=== PATIENT | female | born 1965 | race Caucasian/White ===

== ENCOUNTER 2019-10-06 00:44 | Inpatient (IN) | payer BC ==
[2019-10-06] MEDS ORDERED: hydrALAZINE 20 MG/ML VIAL SLOW IVP PRN (02:09)
[2019-10-06] MEDS ORDERED: Ketorolac Tromethamine 30 MG/ML VIAL IVP PRN (02:09)
[2019-10-06] MEDS ORDERED: Morphine 4 MG/ML VIAL SLOW IVP PRN (02:10)
[2019-10-06] MEDS ORDERED: Pantoprazole 40 MG VIAL IVP SCH ×2 (02:15→21:00)
[2019-10-06] MEDS: D5 1/2 NS w/20 mEq KCL 1,000 ML IV SCH ×3 (02:36→20:45)
[2019-10-06] MEDS: Morphine 2 MG/ML SYRINGE SLOW IVP PRN ×2 (02:38→14:47)
[2019-10-06 03:38] VITALS: BMI 21.9
[2019-10-06] MEDS ORDERED: Ondansetron PF 4 MG/2 ML Vial IVP PRN (08:00)
--- NOTE | 2019-10-06 08:21 | HP ---
CHIEF COMPLAINT: Small-bowel obstruction. HISTORY OF PRESENT ILLNESS: This is a 53-year-old female, who is 3-1/2 years status post gastric bypass, who now presents with nausea, vomiting for a few days. She notes more bloating in the last few weeks, became more vomiting yesterday. Seen in the emergency department where CT scan shows evidence of small-bowel obstruction, admitted to the hospital. She feels much better. Her nausea is improved. Her abdomen is much softer and smaller. She says she is passing small amounts of gas. She has not had a bowel movement. She did not drink oral contrast with her CAT scan. She has had an NG overnight which has put out mostly clear output. No bile. MEDICAL HISTORY: Morbid obesity. SURGICAL HISTORY: Above. MEDICATIONS: Taken daily, multivitamin, thyroid, calcium. ALLERGIES: CODEINE. SOCIAL HISTORY: She is smoking again. No alcohol or other drugs. REVIEW OF SYSTEMS: Ten-system review of systems is otherwise negative unless described above. PHYSICAL EXAMINATION: HEENT: Sclerae are anicteric. Oropharynx clear. NECK: No lymphadenopathy. CHEST: Clear. HEART: Regular rate. ABDOMEN: Soft, nontender, nondistended. Well-healed incisions without hernia. No ischemia or edema to extremities. LABORATORY DATA: Done over in [place] revealed a white blood cell count of 11, hemoglobin of 16, platelet count of 253. Sodium 142, potassium 3.8, creatinine is 0.65. Liver function tests are all normal except for AST which is elevated at 36, normal high being 34. CT scan as above. ASSESSMENT: Partial small-bowel obstruction. It does not appear to be an internal hernia. Clinically improved. PLAN: 1. Gastrografin small-bowel follow-through this morning. 2. OR for laparoscopy if worsens again clinically or small-bowel follow-through shows significant obstruction. Job ID: [id number]
[2019-10-06] MEDS ORDERED: MD-Gastroview 120 ML BOT ONE (10:07)
--- NOTE | 2019-10-06 16:48 | RAD ---
Small bowel series: 10/06/2019 HISTORY: 53-year-old female with small bowel obstruction. FINDINGS: Chronometer Tester view demonstrates excreted IV contrast material in a decompressed urinary bladder. This eventua lly becomes more dense later. Injection of Gastrografin into the esophagogastric tube demonstrates contrast in a very dilated proximal jejunum. There is abrupt transition in caliber in the left side o f the abdomen, where subsequently, collapsed small bowel loops are visualized initially on the two-hour image. There is contrast material in the decompressed right hemicolon and in nondilated ilea l loops in the lower abdomen/pelvis, appearing on the 3 hour image. IMPRESSION: 1. Status post bariatric surgery, with jejunal connection to a very small gastric remnant. 2. Partial small bowel obstruction in the proximal jejunum in left side of abdomen..
[2019-10-06] MEDS ORDERED: Chloraseptic Spray 180 ml Bottle PO PRN (23:50)
--- NOTE | 2019-10-07 02:04 | PRG ---
DATE OF SERVICE: 10/06/2019 SUBJECTIVE: The patient was seen this evening during rounds. She was lying in bed, resting comfortably and asleep with no signs of acute distress. Nursing reported no acute events. NG tube in place. OBJECTIVE: VITAL SIGNS: Temperature 98.1, pulse 72, respirations 16, oxygen saturation 96% on room air, and blood pressure 98/63. GENERAL: Well-appearing middle-aged female, lying in bed, asleep, with no signs of acute distress. PULMONARY: Equal chest rise and fall. No signs of acute respiratory distress. ASSESSMENT: 1. Partial small-bowel obstruction, resolving. 2. History of gastric bypass surgery and hypothyroidism. PLAN: Continue n.p.o. Continue IV fluids at 120 an hour. Continue NG tube to low-intermittent wall suction. Start PT tomorrow. Monitor for return of bowel function. Job ID: [id number]
[2019-10-07] MEDS: D5 1/2 NS w/20 mEq KCL 1,000 ML IV SCH (03:48)
[2019-10-07 05:52] LABS: #Eosinphils 0.2 thou/uL (0.0-0.7); #Lymphocytes 1.7 thou/uL (1.20-3.40); #Monocytes 1.3 thou/uL (0.11-0.59); #Neutrophils 6.7 thou/uL (1.40-6.50); %Basophils 0.4 % (0.0-1.0); %Eosinophils 1.7 % (0.0-10.0); %Lymphocytes 17.5 % (21.0-51.0); %Monocytes 12.8 % (0.0-10.0); %Neutrophils 67.6 % (42.0-75.0); Hemoglobin 13.7 g/dL (12.0-16.0); Mean Corpuscular HGB CONC 31.5 g/dL (32.0-36.0); Mean Corpuscular Hemoglobin 32.4 pg (27.0-31.0); Mean Platelet Volume 7.7 fL (7.4-10.4); Platelet Count 212 thou/uL (130-400); RBC Distribution Width 12.5 % (11.5-14.5); Red Blood Cell (RBC) Count 4.23 mill/uL (4.20-5.40)
[2019-10-07 05:58] LABS: Anion Gap 10 mmol/L (10-20); BUN (Urea Nitrogen) 14 mg/dL (9.8-20.1); Calc. Creatinine Clearance 93 mL/min (70-130); Calcium 8.7 mg/dL (7.8-10.44); Carbon Dioxide 28 mmol/L (22-29); Chloride 105 mmol/L (98-107); Estimated GFR-MDRD Greater than 90; Glucose 112 mg/dL (70-105); Phosphorus 3.3 mg/dL (2.3-4.7); Potassium 4.2 mmol/L (3.5-5.1); Sodium 139 mmol/L (136-145)
--- NOTE | 2019-10-07 10:22 | PRG ---
DATE OF SERVICE: 10/07/2019 SUBJECTIVE: The patient states she had a large bowel movement. She feels normal. She denies any pain. She is hungry. She wants the NG tube out. She wants to try food and wants to go home. OBJECTIVE: On examination, temperature 98.5, pulse 74, and blood pressure 109/72. She is awake, alert. NG tube put out minimal over the last few hours. She had a large amount after the small-bowel follow-through. LABORATORY DATA: Her white count is 10, hemoglobin and hematocrit are 13 and 43, platelet count 212. Electrolytes are fine. ASSESSMENT: Partial small bowel obstruction at the jejunojejunostomy of the Sara limb, resolved. PLAN: Discontinue NG. Clear liquid diet. I told her to stay on liquids for at least a week to let this settle down. She would probably need an EGD. Job ID: [id number]
[2019-10-07 12:04] VITALS: BP 99/65; TEMP 98.1
== END 2019-10-07 13:00 | disposition home or self-care (01) | DRG 394 ==
LOC: SURG A 01:20
PROVIDERS: ADMIT Surgery; ATTEND Surgery
DX: K95.89 Other complications of other bariatric procedure (principal); K91.31 Postprocedural partial intestinal obstruction; E03.9 Hypothyroidism, unspecified; Y83.2 Surgical operation with anastomosis, bypass or graft as the cause of abnormal reaction of the patient, or of later complication, without mention of misadventure at the time of the procedure; F17.200 Nicotine dependence, unspecified, uncomplicated; Z79.890 Hormone replacement therapy
CPT/HCPCS: 36415; 36416; 74250; 80048; 83735; 84100; 85025; C9113; J2270; J2405; J3480; Q9963